=== PATIENT | female | born 1985 ===

== ENCOUNTER 2020-07-13 06:20 | Day surgery (SDC) | payer OTHER ==
[2020-07-13] MEDS ORDERED: NAPR500T14 PO (10:12)
[2020-07-13] MEDS ORDERED: MORGIDOX100 MG PO (10:12)
== END 2020-07-13 12:30 | disposition home or self-care (01) ==
LOC: CIR.AMB 06:20
PROVIDERS: ATTEND Obstetrics & Gynecology
DX: D25.0 Submucous leiomyoma of uterus (principal); N84.0 Polyp of corpus uteri; Z20.822 Contact with and (suspected) exposure to COVID-19

== ENCOUNTER 2023-12-04 06:00 | Day surgery (SDC) | payer OTHER ==
[~2023-12-04 06:00] MED LIST: MORGIDOX100 MG PO; NAPR500T14 PO
[2023-12-04] MEDS ORDERED: CEFOXITIN SODIUM 2,000 MG VIAL IV ONE (08:45)
[2023-12-04] MEDS ORDERED: PROMETHAZINE HCL 50 MG/ML AMPUL IM ONE (13:45)
[2023-12-04] MEDS ORDERED: MORPHINE SULFATE 4 MG/ML VIAL IV PRN (13:45)
[2023-12-04] MEDS ORDERED: NAPR500T14 PO (13:54)
[2023-12-04] MEDS ORDERED: MORGIDOX100 MG PO (13:54)
== END 2023-12-04 15:15 | disposition home or self-care (01) ==
LOC: CIR.AMB 06:00
PROVIDERS: ATTEND Obstetrics & Gynecology
DX: N84.0 Polyp of corpus uteri (principal); D25.0 Submucous leiomyoma of uterus; N92.5 Other specified irregular menstruation